=== PATIENT | female | born 1970 | race Caucasian/White ===

== ENCOUNTER 2017-06-07 17:29 | Emergency (ER) | payer OTHER, SELFPAY ==
[2017-06-07 17:30] VITALS: BP 137/95; PULSE 84; RESP 16; TEMP 37; O2SAT 100; BMI 23.3
--- NOTE | 2017-06-07 18:10 | CT_ITS ---
STUDY: CT BRAIN WITHOUT CONTRAST REASON FOR EXAM: Female, 47 years old. Headache. RADIATION DOSAGE (If Supplied By Facility): CTDIvol = ( 44.99 ) mGy, DLP = ( 745.49 ) mGycm TECHNIQUE: Transaxial CT imaging of the brain was performed without administration of intravenous contrast material. Individualized dose optimization techniques were used for this CT. COMPARISON: None. FINDINGS: Normal soft tissue structures. Normal calvarium. Normal size ventricles and extra-axial spaces for the patient's age. Normal white matter tracts of the cerebral hemispheres. Normal basal ganglia and thalami. Normal brainstem. Normal cerebellum. There is no intracranial hemorrhage. There are no findings of an acute ischemic infarction. There is minimal opacification of the right maxillary and ethmoid sinuses. CT/Brain/Head without Contrast IMPRESSION: No acute intracranial process. Minimal opacification of the right maxillary and ethmoid sinuses consistent with a history of sinusitis. Electronically Signed: Juju Rodrigez MD at 19:15 EDT Tel , Service support ,
[2017-06-07] MEDS: 0.9% Normal Saline 1,000 ML 999 ML IV (18:27)
[2017-06-07] MEDS: DiphenhydrAMINE 50 MG/ML Syringe IV (18:28)
[2017-06-07] MEDS: Ketorolac 30 MG/ML Syringe IV (18:28)
[2017-06-07] MEDS: proCHLORPERazine 10 MG/2 ML Vial IV (18:28)
[2017-06-07 19:49] VITALS: RESP 18
--- NOTE | 2017-06-07 20:12 | ED.VISSUMM ---
- ER Visit Summary Date of Service: 06/07/17 Chief Complaint: Headache History of Present Illness: The patient is a 47 F with no primary care physician. She reports she has a headache that began 2 hours ago. States is 10 out of 10 at worst and 510 currently. She describes as a throbbing pain in the occipital region. States is worsened by nothing and relieved by nothing. She has been nauseated and vomited 3-4 times. No blood in her emesis. Patient reports that she has had similar symptoms on and off for the past 3 months. She has never had imaging of her head. States that typically it lasts for approximately half a day and is having 3-4 times per month. On review of systems she reports that she is congested. She denies any numbness or weakness. States she has she had a fever to 100.5?. Physical Examination: Vitals: Stable. Afebrile. Neck: Supple with no meningismus. Neuro: Cranial nerves II through XII are intact, 5 out of 5 strength throughout, normal sensation to light touch throughout. Normal gait. General: A&O x 3. NAD. Cardiovascular exam: Regular rate and rhythm, no murmur, rub or gallop. Respiratory exam: Clear to auscultation bilaterally. No wheezes or stridor. Abdominal exam: Soft, nontender, nondistended, normal bowel sounds. No peritoneal signs. Extremity: No clubbing, cyanosis, or edema. Test Results: CT head shows minimal opacification of the right maxillary and ethmoid sinuses. Is otherwise normal. Emergency Department Course and Treatment: Patient had an IV placed. She was given a liter of normal saline. She is given Toradol, Benadryl, Compazine IV. On repeat exam she reports that her headache is completely resolved. Treatment Plan: A prolonged discussion with patient about potential etiologies for her headache. I do not think that taking antibiotics or decongestants is going to be helpful. I do suspect that this is tension in etiology. I have suggested that she use warm compresses, push fluids, take anti-inflammatories. Follow-up Dr. Rojas as needed. Disposition: To home in improved and stable condition. Impression: 1. Cephalgia. This note was generated with the[employer] dictation software. It may contain incorrect words, spelling, and punctuation that were not noted in review of the chart prior to signing ED Disposition - Plan for ED Patient: Disposition: Home or Assisted Living Chief Complaint: Headache Instructions: ED Cephalgia Unspecified Referrals: Margot Rojas DO [STAFF PHYSICIAN] - As Needed
[2017-06-07 20:19] VITALS: RESP 18
== END 2017-06-07 20:20 | disposition home or self-care (01) ==
LOC: ED 18:45
PROVIDERS: Emergency Provider Emergency Medicine
DX: R51 Headache (principal)
CPT/HCPCS: 70450; 96361; 96374; 96375; 99283; J7030; A4216

== ENCOUNTER → 2018-01-15 08:23 | Outpatient (CLI) | payer OTHER, SELFPAY ==
--- NOTE | 2018-01-15 08:25 | RAD_ITS ---
STUDY: X-RAY - LEFT TIBIA AND FIBULA REASON FOR EXAM: Female, 47 years old. Pain. No known injury. TECHNIQUE: 3 view(s) of the tibia and fibula were obtained. COMPARISON: None. FINDINGS: Normal visualized tibia. Normal visualized fibula. The soft tissue structures are unremarkable. RAD/Tibia & Fibula 2 Views IMPRESSION: Normal x-ray examination of the tibia and fibula. Electronically Signed: Scott Frank MD at 15:31 EDT Tel [phone], Service support ,
== END ==
PROVIDERS: Family Provider Family Medicine; PCP Family Medicine; Referring Provider Physician Assistant; Visit Provider Physician Assistant
DX: M79.662 Pain in left lower leg (principal)
CPT/HCPCS: 73590

== ENCOUNTER → 2018-01-21 16:59 | Outpatient (CLI) | payer OTHER, SELFPAY ==
--- NOTE | 2018-01-21 17:00 | MRI_ITS ---
STUDY: MRI LEFT KNEE REASON FOR EXAM: Lateral left knee pain since August, no specific injury. TECHNIQUE: Standardized fat and water weighted pulse sequences were obtained in all 3 orthogonal planes. COMPARISON: Radiographs 01/15/2018. FINDINGS: Normal medial meniscus. Normal hyaline cartilage of the medial femorotibial compartment. Normal medial femoral condyle and tibial plateau. Normal medial collateral ligamentous complex (MCL). Normal distal semimembranosus, gracilis and semitendinosus tendons. Normal lateral meniscus. Normal hyaline cartilage of the lateral femorotibial compartment. Normal lateral femoral condyle and tibial plateau. Normal proximal tibiofibular articulation. Normal lateral collateral (fibular) ligament. Normal popliteus tendon. Normal biceps femoris tendon. There is mild interstitial edema in the distal anterior cruciate ligament (T2 sagittal images 12, 13; T2 coronal images 15, 16) suggestive of a low-grade sprain. Normal posterior cruciate ligament (PCL). Normal congruent patellofemoral articulation. Normal hyaline cartilage of the patellofemoral compartment. Normal medial and lateral patellar retinaculum. Normal visualized quadriceps tendon. Normal patellar tendon. Normal Hoffa's fat pad. There is no joint effusion. There is a very small volume of fluid in the prepatellar bursa (T2 sagittal image 16; T2 axial image 15). The otherwise visualized osseous structures are unremarkable. MRI/Lower Ext Joint Only (Routine) IMPRESSION: Mild interstitial edema in the anterior cruciate ligament suggestive of a low-grade sprain. Very mild prepatellar bursitis. No demonstrated stress phenomenon. Electronically Signed: Mayo Ernst MD at 8:21 EDT Tel , Service support ,
== END ==
PROVIDERS: Family Provider Family Medicine; PCP Family Medicine; Referring Provider Physician Assistant; Visit Provider Physician Assistant
DX: F43.0 Acute stress reaction (principal); M25.562 Pain in left knee
CPT/HCPCS: 73721

== ENCOUNTER 2018-02-28 01:19 | Emergency (ER) | payer OTHER, SELFPAY ==
[2018-02-28 01:20] VITALS: BP 130/83; PULSE 78; RESP 18; TEMP 36.8; O2SAT 99; BMI 23.3
--- NOTE | 2018-02-28 01:46 | ED.DCSUM_ITS ---
- ER Visit Summary Date of Service: 02/28/18 Chief Complaint: Vertigo History of Present Illness: The patient is a 47 F who presents for vertigo. Symptoms onset was approximately 1 hour ago. Patient was in bed sleeping and woke up feeling nauseated. She went to get up and became very dizzy, describing symptoms as spinning and vertiginous. Patient has been vomiting. She has a very mild headache. She has had similar symptoms in the past with associated vertigo, for which she has taken Phenergan. She states the symptoms are similar, however a little more intense than her normal vertigo. She denies fever, visual changes, double vision, chest pain, shortness of breath. No numbness, weakness or tingling in the arms or legs. No difficulty speaking or swallowing. Symptoms are worse with standing or walking, and improved with patient sitting still. Physical Examination: Vital signs: afebrile, hemodynamically stable, no hypoxia on room air General: well nourished, well developed, actively retching, appears uncomfortable, sitting in bed with eyes closed Skin: warm, dry, no rash, no pallor HEENT: normocephalic and atraumatic; PERRL, EOMI, horizontal nystagmus, most prominent with leftward gaze, no forward gazing nystagmus or vertical nystagmus. Moist mucous membranes Cardiovascular: regular rate and rhythm without murmurs, no peripheral edema, 2+ pulses all distal extremities Respiratory: No increased work of breathing, lungs are clear to auscultation bilaterally, no rales, rhonchi or wheezing Abdominal: Abdomen is soft, nontender with normoactive bowel sounds, no guarding or rebound, no masses MSK: Moves all extremities, no deformities, normal strength Neuro: Awake and alert, oriented ?4. No facial droop, sensation and motor function intact and symmetric, finger to nose and [id number] are normal. No a aphasia. No dysarthria. No visual field deficits. Test Results: Abnormal Lab Results 02/28/18 02/28/18 01:50 01:50 WBC 6.7 RBC 4.83 Hgb 14.0 Hct 42.2 MCV 87.4 MCH 29.0 MCHC 33.2 RDW 12.6 RDW Differential 40.4 Plt Count 237 MPV 9.5 Immature Gran % (Auto) 0.000 Neut % (Auto) 60.8 Lymph % (Auto) 25.9 Kimball % (Auto) 9.7 Eos % (Auto) 3.3 Baso % (Auto) 0.3 Absolute Neuts (auto) 4.1 Absolute Lymphs (auto) 1.74 Total Counted Not Reportable Sodium 140 Potassium 3.7 Chloride 106 Carbon Dioxide 26.0 Anion Gap 8 BUN 16 Creatinine 1.06 H Estim Creat Clear Calc 62.74 Est GFR (MDRD) Af Amer 72 Est GFR (MDRD) Non-Af 59 L BUN/Creatinine Ratio 15.1 Glucose 108 H Calcium 8.1 L Total Bilirubin 0.60 AST 8 L ALT 13 Alkaline Phosphatase 60 Total Protein 6.8 Albumin 3.7 Globulin 3.1 Albumin/Globulin Ratio 1.2 Medications Given Discontinued Medications Sodium Chloride () 1,000 mls @ 1,000 mls/hr IV .Q1H ONE Stop: 02/28/18 02:37 Last Admin: 02/28/18 01:50 Dose: 1,000 mls/hr Lorazepam (Ativan) 1 mg IV X1 ONE Stop: 02/28/18 03:02 Last Admin: 02/28/18 03:13 Dose: 1 mg Meclizine HCl (Antivert) 25 mg PO X1 ONE Stop: 02/28/18 04:06 Last Admin: 02/28/18 04:27 Dose: 25 mg Promethazine HCl (Phenergan) 12.5 mg IV X1 ONE Stop: 02/28/18 01:39 Last Admin: 02/28/18 01:49 Dose: 12.5 mg Emergency Department Course and Treatment: Patient presents with sudden onset of vertigo while sleeping, which she has had in the past. We discussed whether she had ever been diagnosed as benign positional vertigo, and she and agreed that the positional vertigo and the inner ear issue was consistent with her prior diagnosis. Patient also states she does her own Trina maneuver at home once her symptoms calm down and has improvement. Patient was given IV fluids and Phenergan for symptoms. Patient's symptoms were exacerbated with Beatriz- Hallpike, and an Trina maneuver was attempted without any improvement in her symptoms. Patient had resolution of her nausea and vomiting with the Phenergan, but continued to have the vertigo. Patient was given Ativan for continued vertigo. Patient's symptoms are consistent with her prior episodes of BPPV, and her symptoms were provoked with changes in head position, consistent with BPPV. Patient was ambulated and had a narrow gait and was able to ambulate without any assistance. She was still symptomatic with ambulation but felt comfortable going home. She was given a prescription for meclizine and for Valium. She will follow-up with your doctor if not having improvement. Return precautions vipin avalos. Patient discharged home. Treatment Plan: [] Disposition: [] Impression: Benign positional vertigo This note was generated with [employer] dictation software. It may contain incorrect words, spelling, and punctuation that were not noted in review of the chart prior to signing ED Disposition - Plan for ED Patient: Disposition: Home or Assisted Living Chief Complaint: Dizziness Instructions: ED BPV Vertigo Prescriptions: Diazepam [Valium] 2 mg PO BID PRN PRN #10 tab PRN Reason: Vertigo RX: Meclizine HCl [Antivert] 25 mg PO 4X/DAY PRN PRN #30 tab PRN Reason: Vertigo Referrals: Bryant Villa MD [Primary Care Provider] - 3-5 Days if not improving Additional Instructions: May use the meclizine and Valium as needed for vertigo. Please follow-up with your doctor if you are not having improvement within 3-5 days. If you have any worsening of your condition or any new concerning symptoms, please return immediately to the emergency department for another evaluation.
[2018-02-28] MEDS: proMETHazine 25 MG/ML Syringe 12.5 MG IV (01:49)
[2018-02-28] MEDS: 0.9% Normal Saline 1,000 ML 1000 ML IV (01:50)
[2018-02-28 01:59] LABS: Absolute Lymphocyte Count 1.74 X10^3/ul (0.83-4.51); Absolute Neutrophil Count 4.1 X10^3/uL (2.0-7.7); Basophil# 0.02 X10^3/uL; Basophil% 0.3 % (0-1); Eosinophil# 0.22 X10^3/uL; Eosinophils% 3.3 % (0-5); Hematocrit 42.2 % (37-47); Lymphocyte # 1.74 X10^3/ul (4.0); Lymphocyte % 25.9 % (19-41); Mean Corp Hgb Conc 33.2 g/gl (32-36); Mean Corpuscular Volume 87.4 fL (81-99); Mean Platelet Vol. 9.5 fl (6.2-12.0); Monocyte# 0.65 X10^3/uL; Monocyte% 9.7 % (0-10); Neutrophil # 4.09 X10^3/uL (2.7-7.7); Neutrophil % 60.8 % (47-70); Platelet Count 237 K/mm3 (150-450); RBC Distribution Width CV 12.6 % (11.6-14.6); RBC Distribution Width SD 40.4 fl (35.1-43.9); Red Blood Count 4.83 M/mm3 (4.2-5.4); White Blood Count 6.7 K/mm3 (4.4-11.0)
[2018-02-28 02:01] LABS: POSITIVE COUNT NO; POSITIVE DIFFERENTIAL NO; POSITIVE MORPHOLOGY NO
[2018-02-28 02:14] LABS: ALB/GLOB Ratio 1.2 RATIO (0.9-2.4); AST(SGOT) 8 U/L (15-37); Alanine Aminotransfer ALT/SGPT 13 U/L (13-56); Albumin, Serum 3.7 g/dL (3.2-5.0); Alkaline Phosphatase 60 U/L (45-117); Anion Gap 8 (5-15); BUN 16 mg/dL (7-18); BUN/Creat Ratio 15.1 RATIO (10-20); Calcium,Total 8.1 mg/dL (8.5-10.1); Chloride 106 mmol/L (98-107); Creatinine, Serum 1.06 mg/dL (0.55-1.02); EST Glomerular Filtration Rate 59 mL/min (>60); Est Glom Filt Rate - Afr Amer 72 mL/min (>60); Estimated Creatinine Clearance 62.74 ml/min; Globulin 3.1 g/dL (2.2-4.2); Glucose 108 mg/dL (74-106); Potassium 3.7 mmol/L (3.5-5.1); Protein, Total 6.8 g/dL (6.4-8.2); Sodium Level 140 mmol/L (136-145)
[2018-02-28] MEDS: LORazepam 2 MG/ML Syringe 1 MG IV (03:13)
--- NOTE | 2018-02-28 04:08 | ED.DEP ---
ED Disposition - Plan for ED Patient: Disposition: Home or Assisted Living Chief Complaint: Dizziness Instructions: ED BPV Vertigo Prescriptions: Diazepam [Valium] 2 mg PO BID PRN PRN #10 tab PRN Reason: Vertigo Meclizine HCl [Antivert] 25 mg PO 4X/DAY PRN PRN #30 tab PRN Reason: Vertigo Referrals: Bryant Villa MD [Primary Care Provider] - 3-5 Days if not improving Additional Instructions: May use the meclizine and Valium as needed for vertigo. Please follow-up with your doctor if you are not having improvement within 3-5 days. If you have any worsening of your condition or any new concerning symptoms, please return immediately to the emergency department for another evaluation.
[2018-02-28] MEDS: Meclizine HCl 25 MG Tablet PO (04:27)
[2018-02-28 04:29] VITALS: BP 119/70; PULSE 69; RESP 16; O2SAT 100
== END 2018-02-28 04:37 | disposition home or self-care (01) ==
PROVIDERS: Emergency Provider Emergency Medicine; Family Provider Family Medicine; PCP Family Medicine
DX: H81.10 Benign paroxysmal vertigo, unspecified ear (principal)
CPT/HCPCS: 80053; 85025; 96361; 96374; 96375; 99284; J7030; A4216

== ENCOUNTER 2018-03-04 17:00 | Outpatient (RCR) | payer OTHER, SELFPAY ==
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
--- NOTE | 2018-06-25 16:46 | HP.PT.NRP ---
HP - Discharge Summary (1) - Patient Information DAVE CHANDRA was seen in my office for initial evaluation on 11/12/17. The following Plan of Care was established for this patient: Initial Frequency: 2-3x /Week Initial Duration: 2-4 Months - Anticipated Interventions Patient/Client Instruction: Educate patient on: Condition, Plan of Care, Risk Factors, Benefits of Fitness Program For the Purpose of:: To improve self management Therapeutic Exercise to Include: Strength training, Body mechanics, Postural training, Flexibilty training, Passive ROM, Active ROM, Dynamic Lumbar Stabilization For the Purpose of:: To decrease pain, To improve muscle performance and motor function, To increase tolerance to activity/condition/position, To improve ability of physical actions for home/community/work/leisure, To decrease soft tissue restriction Manual Therapy Techniques to Include: Functional dry needling Comment: LUMBAR AND LEFT HIP For the Purpose of:: To decrease pain, To increase ROM, To improve nutrient delivery to tissue This patient was last seen in our office . Pertinent comments regarding their Physical therapy will appear below: Patient has not attended PT in over 3 months and is appropriate for d/c at this time. Return to MD for further evaluation. At this point I will be discontinuing this patient from physical therapy. I would be happy to see this patient again in the future if found appropriate by the physician. Thank you! GERRI McallisterT
== END 2018-03-04 19:00 | disposition home or self-care (01) ==
LOC: PT 17:00
PROVIDERS: Family Provider Family Medicine; PCP Family Medicine; Visit Provider Orthopaedic Surgery
DX: M79.605 Pain in left leg (principal)
CPT/HCPCS: 97016; 97035; 97110; 97140; 97162; 97530

== ENCOUNTER → 2018-06-24 16:50 | Outpatient (CLI) | payer OTHER, SELFPAY ==
--- NOTE | 2018-06-24 16:53 | MRI_ITS ---
STUDY: MRI BRAIN WITHOUT CONTRAST REASON FOR EXAM: Female, 48 years old. Headache, blurred vision, vertigo for a few months TECHNIQUE: Standardized multiplanar fat and water weighted pulse sequences were obtained. COMPARISON: None. FINDINGS: Normal size of the ventricles and extra-axial spaces for the patient's age. Normal white matter tracts of the supratentorial brain. Normal bilateral basal ganglia. Normal thalami. There is no extra-axial fluid accumulation. Normal flow voids within the major intracranial circulation suggesting patency by spin echo criteria. Normal sella turcica, pituitary gland, infundibular stalk, optic chiasm and hypothalamus. Normal tectal plate and pineal gland. Normal midbrain, lexie and medulla. Normal cerebellum. Normal basal cisterns. Normal bilateral temporal bones. Normal bilateral internal auditory canals. No demonstrated orbital abnormality, within the constraints of a routine brain study. Normal visualized paranasal sinuses. Normal calvarium and skull base. Normal visualized soft tissue structures. Normal visualized upper cervical spine. MRI/Brain without Contrast IMPRESSION: Normal unenhanced MRI of the brain. Electronically Signed: Aguila Cabrera MD at 22:45 EDT Tel , Service support ,
== END ==
PROVIDERS: Family Provider Internal Medicine; PCP Internal Medicine; Referring Provider Internal Medicine; Visit Provider Internal Medicine
DX: R42 Dizziness and giddiness (principal)
CPT/HCPCS: 70551

== ENCOUNTER 2019-01-13 01:18 | Emergency (ER) | payer OTHER, SELFPAY ==
[2019-01-13 01:19] VITALS: BP 139/95; PULSE 67; RESP 18; TEMP 35.6; O2SAT 96; BMI 24.5
[2019-01-13] MEDS: proMETHazine 25 MG/ML Syringe 12.5 MG IV (01:32)
--- NOTE | 2019-01-13 01:34 | ED.VISSUMM ---
- ER Visit Summary Date of Service: 01/13/19 Chief Complaint: Vertigo History of Present Illness: The patient is a 48 F who started experiencing some vertigo today. She was doing yoga and got into a certain position which made this worse. It improved when she got home and laid down it became worse. She tried taking her own Valium and meclizine at home but she vomited this back up. She is a history of vertigo and does have these medications to take as needed. The room is spinning. She states it feels exactly like her previous episodes. She has a slight headache but denies any other symptoms. Physical Examination: Vital signs reviewed. HEENT exam unremarkable except for nystagmus to the left which makes her symptoms worse. Heart is regular rate and rhythm without murmurs. Lungs are clear to auscultation. Abdomen is soft and nontender. Extremities reveal no edema. Skin exam normal. Neurologic exam normal. Test Results: None performed Emergency Department Course and Treatment: Patient was treated with IV Phenergan and oral meclizine. Upon reevaluation she is feeling much better. She already has meclizine and Valium at home. I will give her Phenergan that she can take to prevent nausea that way she can keep her medications down. Her symptoms are classic for peripheral vertigo. She has a history of this and it feels exactly the same. I do not feel she requires any imaging or laboratory studies at this time. Treatment Plan: [] Disposition: Discharge Impression: Vertigo This note was generated with [employer] dictation software. It may contain incorrect words, spelling, and punctuation that were not noted in review of the chart prior to signing ED Disposition - Plan for ED Patient: Referrals: Margot Rojas DO [Primary Care Provider] -
[2019-01-13] MEDS: Meclizine HCl 25 MG Tablet PO (01:39)
--- NOTE | 2019-01-13 02:11 | ED.DEP ---
ED Disposition - Plan for ED Patient: Disposition: Home or Assisted Living Instructions: Benign Positional Vertigo Prescriptions: proMETHazine tablet [Phenergan] 25 mg PO Q6H PRN PRN #20 tab PRN Reason: Nausea Prescription Printed Referrals: Margot Rojas DO [Primary Care Provider] -
[2019-01-13 02:33] VITALS: BP 99/68; PULSE 64; RESP 17; O2SAT 98
== END 2019-01-13 02:33 | disposition home or self-care (01) ==
PROVIDERS: Emergency Provider Emergency Medicine; Family Provider Internal Medicine; PCP Internal Medicine
DX: R42 Dizziness and giddiness (principal)
CPT/HCPCS: 96374; 99283; A4216

== ENCOUNTER → 2019-03-11 07:59 | Outpatient (CLI) | payer OTHER, SELFPAY ==
--- NOTE | 2019-03-11 08:03 | BI_ITS ---
MAMMOGRAPHY - BILATERAL SCREENING REASON FOR EXAM: Female, 48 years old. Routine annual screening examination. PERTINENT HISTORY: Aunt with breast cancer. TECHNIQUE: Digital bilateral breast jose elias (3D mammographic acquisition) in the CC and MLO projections. 2-D mediolateral oblique (MLO) and craniocaudad (CC) views of both breasts were obtained. CAD: Full Field Digital Mammography with Computer Added Detection was performed. COMPARISON: Comparison is made with prior study dated May 04, 2013. FINDINGS: Breast Composition: The breasts are heterogeneously dense, which may obscure small masses. There are no dominant masses or suspicious calcifications. No other significant abnormalities are identified. There has been no significant change since the prior study. BI/SCREEN MAMM (CAD) W/JOSE ELIAS BILAT IMPRESSION: Stable bilateral screening mammogram. Yearly follow-up mammogram recommended. (A) ASSESSMENT CATEGORY: BIRADS Category 1: Negative. A letter regarding these results will be sent to the patient by the facility within 30 days. Approximately 10% of breast cancers are not detected by mammography. A normal mammogram should not delay biopsy of a clinically suspicious abnormality. [id number] Electronically Signed: Scott Frank, at 9:25 EST , Service support ,
== END ==
PROVIDERS: Family Provider Internal Medicine; PCP Internal Medicine; Referring Provider Obstetrics & Gynecology; Visit Provider Obstetrics & Gynecology
DX: Z12.31 Encounter for screening mammogram for malignant neoplasm of breast (principal)
CPT/HCPCS: 77063; 77067

== ENCOUNTER → 2020-03-30 16:02 | Outpatient (CLI) | payer OTHER, SELFPAY ==
--- NOTE | 2020-03-30 16:05 | BI_ITS ---
MAMMOGRAPHY - BILATERAL SCREENING REASON FOR EXAM: Female, 49 years old. Routine annual screening examination. PERTINENT HISTORY: Aunt with breast cancer. TECHNIQUE: Digital bilateral breast jose elias (3D mammographic acquisition) in the CC and MLO projections. 2-D mediolateral oblique (MLO) and craniocaudad (CC) views of both breasts were obtained. CAD: Full Field Digital Mammography with Computer Added Detection was performed. COMPARISON: Comparison is made with prior study dated 03/11/2019 and 05/04/2013 FINDINGS: Breast Composition: The breasts are extremely dense, which lowers the sensitivity of mammography. There are no dominant masses or suspicious calcifications. No other significant abnormalities are identified. There has been no significant change since the prior study. BI/SCREEN MAMM (CAD) W/JOSE ELIAS BILAT IMPRESSION: Stable bilateral screening mammogram. Yearly follow-up mammogram recommended. (A) ASSESSMENT CATEGORY: BIRADS Category 1: Negative. A letter regarding these results will be sent to the patient by the facility within 30 days. Approximately 10% of breast cancers are not detected by mammography. A normal mammogram should not delay biopsy of a clinically suspicious abnormality. [id number] Electronically Signed: Scott Frank, at 8:43 EST , Service support ,
== END ==
PROVIDERS: PCP Internal Medicine; Referring Provider Obstetrics & Gynecology; Visit Provider Obstetrics & Gynecology
DX: Z12.31 Encounter for screening mammogram for malignant neoplasm of breast (principal)
CPT/HCPCS: 77063; 77067

== ENCOUNTER 2020-07-12 17:25 | Emergency (ER) | payer OTHER, SELFPAY ==
[2020-07-12 17:25] VITALS: BP 152/78; PULSE 66; RESP 14; TEMP 36.4; O2SAT 100; BMI 23.8
--- NOTE | 2020-07-12 19:00 | CT_ITS ---
EXAMINATION : Head CT w/out contrast HISTORY : Headache COMPARISON : 06/07/2017. TECHNIQUE : Multiple contiguous axial images were obtained from the skull base to the vertex without intravenous contrast. A radiation dose optimization technique was used for this scan. FINDINGS : The ventricles and sulci are normal in size. There is no evidence for acute intracranial hemorrhage, mass effect, or midline shift. There is no extra-axial fluid collection. There is normal ortez-white differentiation, without CT evidence of acute ischemia or infarct. The skull base and calvarium are unremarkable. The orbits are unremarkable. The paranasal sinuses are clear. The mastoid air cells are well-aerated. The soft tissues are unremarkable. CT/Brain/Head without Contrast IMPRESSION: No acute intracranial abnormality. Electronically Signed: Slade Ernst MD at 19:34 EDT Tel , Service support ,
[2020-07-12] MEDS: diazePAM 5 MG Tablet 2.5 MG PO (19:20)
[2020-07-12] MEDS: Meclizine HCl 25 MG Tablet PO (19:20)
--- NOTE | 2020-07-12 20:28 | ED.VIS.GEN ---
History of Present Illness Chief Complaint: Dizziness Narrative: Patient presenting for evaluation secondary to vertigo. Patient does have a history of having issues with vertigo in the past. Patient states that typically her symptoms will be very paroxysmal and not last for multiple days at a time. Patient states that she basically has been having an exacerbation of her vertigo over the course of the last 5 days. She states that it is positional is worse with laying flat and rolling over in bed. It is a spinning type sensation. It comes and goes. This time however its been associated with somewhat of a headache, and that is somewhat abnormal. She denies that this is a thunderclap headache. It is a general aching type pain. Patient denies any visual changes numbness or weakness. She still able to ambulate. Patient has seen ENT in the past, she had sinus surgery a couple years ago and actually had had a significant improvement in her frequency of vertigo symptoms. Review of systems otherwise negative. Past Medical History - Allergies and Home Meds Allergies/Adverse Reactions: Allergies morphine Allergy (Verified 07/12/20 17:27) Swelling SWELLING IN THROAT Primary Care Physician: Margot Rojas DO [Primary Care Provider] - Prior records reviewed: Yes Past Medical History: - - Past history of vertigo Lives: Spouse/ Significant Other Smoking Status: Never smoker Alcohol: None Drugs: None Review of Systems All systems negative except as indicated General: Denies: Chills, Fever, Sweats Eyes: Denies: Visual changes - bilaterally, Diplopia ENT: Denies: Rhinorrhea, Sore throat Cardiovascular: Denies: Chest pain, Palpitations Respiratory: Denies: Dyspnea, Cough, Dyspnea on exertion Gastrointestinal: Denies: Abdominal pain, Nausea, Vomiting, Diarrhea, Melena, Hematochezia Genitourinary: Denies: Dysuria, Hematuria, Frequency Musculoskeletal: Denies: Back pain, Extremity Pain Skin: Denies: Rash, Wounds Neurological: Reports: Headache, - - Dizziness Physical Exam Vital Signs/Narrative: Vital Signs Temp Pulse Resp BP Pulse Ox 07/12/20 17:25 97.5 F L 66 14 152/78 H 100 Inital Vital Signs reviewed: Yes General: Well nourished, Well developed, No Acute Distress Head: Normocephalic, Atraumatic Eyes: Perrl, EOMI ENT: Moist mucous membranes, No rhinorrhea, TM's clear Neck: Supple, Nontender Cardiovascular: Regular rate, Regular rhythm, No murmurs Respiratory: No distress, CTA bilaterally, Chest nontender Abdomen: Soft, Nontender, Nondistended, Normal bowel sounds Back: Nontender, Normal Inspection Extremities: Nontender, No edema Skin: Normal color, No rash Neurological: Alert, Oriented x3, Cranial nerves II-XII grossly intact, Normal Strength, Normal Sensation, - - Normal gait, no evidence of ataxia, normal [id number] Psychological: Normal affect, Normal Mood Diagnostic/Tx/Re-eval Clinical Impression(s) from Imaging Studies Brain CT 07/12/20 19:00 IMPRESSION: No acute intracranial abnormality. Electronically Signed: Slade Ernst MD at 19:34 EDT Tel , Service support , - Medical Decision Making Patient presented secondary to an exacerbation of her vertigo. She was given meclizine and Valium in the emergency department. CT imaging was performed due to the concomitant headache, per radiology this was found to be negative. Patient has no signs of ataxia, I am not concerned for the possibility of thrombosis or posterior circulation stroke. She was able to ambulate multiple times in the emergency department. She did have symptomatic improvement for medication in the ED. As this seems to be consistent with the patient's prior vertigo, do not believe that she requires admission or further work-up. She will follow-up with her ear nose and throat physician. Patient was discharged in improved condition. ED Disposition - Plan for ED Patient: Disposition: Home or Assisted Living Diagnosis: Peripheral vertigo Instructions: ED BPV Vertigo Referrals: Bryant Farris MD [STAFF PHYSICIAN] - 3-5 Days if not improving
[2020-07-12 20:44] VITALS: PULSE 54; RESP 16
== END 2020-07-12 20:44 | disposition home or self-care (01) ==
PROVIDERS: Emergency Provider Emergency Medicine; PCP Internal Medicine
DX: H81.399 Other peripheral vertigo, unspecified ear (principal)
CPT/HCPCS: 70450; 99283

== ENCOUNTER → 2021-03-06 06:35 | Outpatient (CLI) | payer OTHER, SELFPAY ==
[2021-03-06 08:08] LABS: Hematocrit 45.4 % (37-47); Hemoglobin 15.2 g/dL (12.0-15.0); Mean Corp Hgb Conc 33.5 g/dL (32-36); Mean Corpuscular Hgb 29.7 pg (27.0-32.0); Mean Corpuscular Volume 88.8 fL (81-99); Mean Platelet Vol. 9.7 fl (6.2-12.0); Platelet Count 306 K/mm3 (150-450); RBC Distribution Width CV 12.1 % (11.6-14.6); RBC Distribution Width SD 39.5 fl (35.1-43.9); Red Blood Count 5.11 M/mm3 (4.2-5.4); White Blood Count 4.9 K/mm3 (4.4-11.0)
[2021-03-06 08:43] LABS: ALB/GLOB Ratio 1.1 RATIO (0.9-2.4); AST(SGOT) 12 U/L (15-37); Alanine Aminotransfer ALT/SGPT 18 U/L (13-56); Albumin, Serum 3.8 g/dL (3.2-5.0); Alkaline Phosphatase 75 U/L (45-117); Anion Gap 4 (5-15); BUN 13 mg/dL (7-18); BUN/Creat Ratio 12.9 RATIO (10-20); Calcium,Total 9.1 mg/dL (8.5-10.1); Chloride 108 mmol/L (98-107); Creatinine, Serum 1.01 mg/dL (0.55-1.02); EST Glomerular Filtration Rate 62 mL/min (>60); Est Glom Filt Rate - Afr Amer 75 mL/min (>60); Globulin 3.4 g/dL (2.2-4.2); Glucose 86 mg/dL (74-106); Protein, Total 7.2 g/dL (6.4-8.2); Sodium Level 141 mmol/L (136-145); Thyroid Stim Hormone (TSH) 1.47 uIU/mL (0.358-3.74)
== END ==
PROVIDERS: PCP Internal Medicine; Referring Provider Psychiatry & Neurology Neurology; Visit Provider Psychiatry & Neurology Neurology
DX: R42 Dizziness and giddiness (principal); R53.83 Other fatigue
CPT/HCPCS: 36415; 80053; 84443; 85027

== ENCOUNTER 2021-03-12 06:48 | Outpatient (RCR) | payer OTHER, SELFPAY ==
--- NOTE | 2021-03-12 07:38 | HP.PTEVAL_ITS ---
Patient's Visit Information DAVE CHANDRA is a 50 year old F referred to Physical Therapy by Dr. Leighton Way MD with a diagnosis of dizzyness. Date of Evaluation: 03/12/21 Physical Therapist: Elmo Espino, GERRIT, OCS, CSCS - Visit Plan Frequency: 1x/Week Duration: 4-6 Weeks Plan: weekly as needed for positional treatments/exercises adn vestibular interventions as appropriate. - Subjective Get intermittent vertigo 1-2x/year for a long time. Had sinus procedure done and stopped getting them. However , over the last year has had vertigo each morning waking up or moving head at night. Gets HIGGINS with it and that has not happened before. Sent here for vestibular therapist by neurologist. The dizzyness is not horrible but annoying. Getsit most mornings for the last couple months but it does not last long or keep her from working. Gets it in bed moving. Lying straight back is the worst as when she gets a massage. It can be spinning or just a weird feeling in the head. 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 This is new in last year and a half and may be casuing the HIGGINS. Can get dizzyness if moves head too fast. Activities at home are pretty normal, can just be annoying. - Objective Walks and trasnfers normal and easy today, some discomfort in eyes lying down but functional. Steps reciprocal without rail easy. - L hallpike magdy. Possible + R hallpike magdy with squinting and some minor dizzyness for 5-10 seconds(no obvious nystagmus) , treated with Trina 2x/today. - roll test. Oculomotor: no nystagmus with gaze or head shake. - head thrust. - ocular tilt. - skew eye deviation. purusit and saccades are normal. VOr is normal and without symptoms horiz and vertical. - Balance/Special Test Scores Functional Gait Assessment Score: 30 % Disability: 0 Dizziness Score: 26 - Goals Goal 1:: abolish all dizzyness. Goal Time Frame: 4-6 Weeks Goal 2:: 0 DHI score Goal Time Frame: 4-6 Weeks - Rehabilitation Potential Physical Therapy Diagnosis: possible BPPV and resulting annoyance with activites. Rehabilitation Potential: Fair - Anticipated Interventions Patient/Client Instruction: Educate patient on: Condition, Plan of Care For the Purpose of:: To increase tolerance to activity/condition/position Comment: vestibular interventions as appropriate For the Purpose of:: To increase tolerance to activity/condition/position Thank you for the opportunity to evaluate your patient. For Medicare and Medicare HMO plans, please review the plan of care and approve it. It will need to be FAXED BACK to us at [phone] for Medicare purposes. For Medicare only, by signing this I certify the plan of care. Please let me know if there are questions or concerns regarding this plan of care. Physician Signature: Date:
--- NOTE | 2021-05-07 08:39 | HP.PT.NRP ---
DAVE CHANDRA was seen in my office for initial evaluation on 03/12/21. The following Plan of Care was established for this patient: Initial Frequency: 1x/Week Initial Duration: 4-6 Weeks Patient/Client Instruction: Educate patient on: Condition, Plan of Care For the Purpose of:: To increase tolerance to activity/condition/position For the Purpose of:: To increase tolerance to activity/condition/position This patient was last seen in our office 03/12/21. Pertinent comments regarding their Physical therapy will appear below: Pt seen one visit of POC but cancelled remaining visits without rescheduling. At this point, it has been almost two months and I will discontinue due to nonattendance. At this point I will be discontinuing this patient from physical therapy. I would be happy to see this patient again in the future if found appropriate by the physician. Thank you! Elmo Espino, DPT, OCS, CSCS Balance/Gait/Functional tests - Balance/Special Test Scores Functional Gait Assessment Score: 30 % Disability: 0 Dizziness Score: 26
== END 2021-03-12 19:00 | disposition home or self-care (01) ==
LOC: PT 06:48
PROVIDERS: PCP Internal Medicine; Referring Provider Psychiatry & Neurology Neurology; Visit Provider Psychiatry & Neurology Neurology
DX: R42 Dizziness and giddiness (principal)
CPT/HCPCS: 97161

== ENCOUNTER 2023-08-05 18:01 | Emergency (ER) | payer OTHER, SELFPAY ==
[2023-08-05 18:02] VITALS: BP 158/91; PULSE 86; RESP 18; TEMP 36.1; O2SAT 100; BMI 24.5
[2023-08-05 19:09] LABS: Absolute Lymphocyte Count 0.94 X10^3/uL (0.83-4.51); Absolute Neutrophil Count 8.6 X10^3/uL (2.0-7.7); Basophil# 0.04 X10^3/uL; Basophil% 0.4 % (0-1); Eosinophil# 0.15 X10^3/uL; Eosinophils% 1.5 % (0-5); Hematocrit 45.7 % (37-47); Hemoglobin 14.7 g/dL (12.0-15.0); Lymphocyte # 0.94 X10^3/ul (0.83-4.51); Lymphocyte % 9.2 % (19-41); Mean Corp Hgb Conc 32.2 g/dL (32-36); Mean Corpuscular Hgb 28.6 pg (27.0-32.0); Mean Corpuscular Volume 88.9 fL (81-99); Mean Platelet Vol. 9.6 fl (6.2-12.0); Monocyte# 0.49 X10^3/uL; Monocyte% 4.8 % (0-10); NRBC Flagged by Analyzer 0 % (0-5); Neutrophil # 8.56 X10^3/uL (2.7-7.7); Neutrophil % 83.8 % (47-70); Platelet Count 301 K/mm3 (150-450); RBC Distribution Width CV 12.5 % (11.6-14.6); RBC Distribution Width SD 41.1 fl (35.1-43.9); Red Blood Count 5.14 M/mm3 (4.2-5.4); White Blood Count 10.2 K/mm3 (4.4-11.0)
--- NOTE | 2023-08-05 19:12 | EDS_ITS ---
HPI HPI - GI History of Present Illness Chief Complaint: Abd Pain Detail of Chief Complaint: Abdominal pain Narrative Narrative: Patient presents with abdominal pain is around 3 PM. Patient states that initially she woke up this morning with some pain in her right back that she thought she slept wrong. The pain in her abdomen started around 3 PM. Mostly right-sided. She complains of vomiting x 7. She denies diarrhea. She has had no fever. No urinary symptoms. She is never had pain like this before. She had prior hysterectomy. No history of kidney stones. Currently rates her pain 9 or 10 out of 10. [facility] Medical History (Updated 08/06/23 @ 00:[address] Oni Carlson, DO) Asthma Seasonal allergies Vertigo Home Medications ?Medication ?Instructions ?Recorded ?Last Taken ?Type meclizine 25 mg tablet 25 mg PO 4X/DAY PRN PRN Vertigo 02/28/18 Unknown Rx #30 tabs hydroxyzine pamoate 25 mg capsule 25 mg PO TID PRN Dizziness or 03/05/21 Unknown Rx nausea #90 caps ascorbic acid (vitamin C) 1,000 mg 1,000 mg PO DAILY 08/05/23 Unknown History tablet,extended release (C Complex) melatonin 10 mg chewable tablet 20 mg PO QHS sleep 08/05/23 Unknown History (MelatoninMax) ondansetron 4 mg disintegrating 4 mg PO Q6H PRN PRN nausea/vomiting 08/05/23 Unknown History tablet Allergy/AdvReac Type Severity Reaction Status Date / Time morphine Allergy Swelling Verified 08/05/23 18:04 Family History (Updated 03/05/21 @ 08:04 by Aicha Lloyd) Other CVA (cerebral vascular accident) Cancer Surgical History History of sinus surgery History of hysterectomy Social History (Updated 03/05/21 @ 08:04 by Aicha Lloyd) Smoking Status: Never smoker Electronic Cigarette Use: not used second hand exposure: No alcohol intake: never substance use type: does not use ROS ROS ED Review of Systems ROS Unobtainable: other Constitutional Constitutional ED: Reports lethargy; Denies chills, fever(s), sweats or weight loss Eyes Eyes: Denies blurry vision, change in vision or diplopia ENT ENT ED: Denies rhinorrhea or sore throat Cardiovascular Cardiovascular: Denies chest pain, orthopnea or racing heartbeat Respiratory/Chest Respiratory/Chest: Denies cough, dyspnea, dyspnea on exertion, orthopnea or sputum Gastrointestinal Gastrointestinal: Reports abdominal pain, nausea and vomiting; Denies diarrhea Genitourinary Genitourinary ED: Denies dysuria, hematuria or urinary frequency Musculoskeletal Musculoskeletal: Denies arthralgias, back pain, myalgias or neck pain Integumentary Denies abscess, Abrasions or rash Neurologic Neurologic: Denies headache(s) or weakness Psychiatric Psychiatric: Denies anxiety, depression or suicidal thoughts Endocrine Endocrinology: Denies polydipsia, polyphagia or polyuria Hematologic/Lymphatic Hematologic/Lymphatic: Denies easy bleeding, easy bruising or lymphadenopathy Allergic/Immunologic Allergic/Immunologic ED: Denies mouth swelling, tongue swelling or urticaria EXAM Physical Exam Const Vital Signs: 08/05/23 18:02 08/05/23 20:01 08/05/23 22:00 Temperature 97 F L 98.1 F Temperature Source Temporal Oral Pulse Rate 86 85 82 Respiratory Rate 18 16 16 Blood Pressure 158/91 H 121/62 H 136/80 H Blood Pressure Mean 113 81 98 Pulse Ox 100 99 98 Oxygen Delivery Method Room Air Room Air Room Air 08/06/23 00:00 Temperature Temperature Source Pulse Rate 66 Respiratory Rate 16 Blood Pressure 130/57 H Blood Pressure Mean 81 Pulse Ox 99 Oxygen Delivery Method Room Air Positive well nourished and well developed General Appearance ED: well developed and NAD HEENT Reports TM's clear and moist mucous membranes normocephalic and atraumatic; Negative for trauma or tenderness Tympanic Membrane ED: Yes TM's clear Eyes PERRL and EOMs intact bilaterally General Eye ED: Negative for pale conjunctiva or scleral icterus Neck no lymphadenopathy, supple and no JVD General: Negative for tenderness Chest Wall inspection of chest normal and palpation of chest normal Chest: Negative for tenderness Resp normal respiratory effort and clear to auscultation bilaterally Effort and Inspection: Negative for respiratory distress or pain with movement Auscultation: Negative for rhonchi, wheezes or diminished lung sounds Cardio regular rate, regular rhythm, S1 normal heart sound, S2 normal heart sound and no murmurs Peripheral Pulses: pulses 2+ throughout GI normal to inspection, nondistended, normoactive bowel sounds, soft to palpation, non-distended and no masses GI Narrative: Tenderness palpation of the right lower quadrant with guarding. No rebound, rigidity, or pineal signs. No mass palpated Back/Spine no CVA tenderness and no thoracic nor lumbar tenderness Extremity normal to inspection General Extremety ED: Negative for edema General Extremity: Negative for edema Neuro oriented x3, CN's II-XII intact bilaterally, no sensory deficits noted and gait normal Sensorium / Orientation: awake, alert, oriented to person, oriented to place and oriented to time Motor Exam: strength 5/5 throughout and strength abnormal Psych mental status grossly normal Skin no rashes or lesions noted and no wounds MDM MDM MDM Narrative Medical decision making narrative: Patient presents with abdominal pain right lower quadrant started around 3 PM not multiple episodes of vomiting. Denies dysuria. In the differential would be kidney stone versus UTI versus appendicitis or other acute intra-abdominal process. Patient's had a hysterectomy with 1 ovary removed and possibly part of the second ovary but she is not sure which side. Ovarian torsion would be in the differential. IV line established. She was medicated with Dilaudid and Zofran. CBC with differential obtained showing a 10.2 with hemoglobin 14.7 and platelet count of 301. Chemistries unremarkable. LFTs unremarkable. Urine was negative for infection. CT scan of the abdomen pelvis without contrast showed no evidence for kidney stones or other acute process. There was nonvisualization of the appendix. I repeated the CT with IV and p.o. contrast and radiology felt the appendix looked normal. Patient continues to complain of pain and was given another dose of Dilaudid IV. Had discussion with general surgeon on-call Dr. Solomon who evaluated the CT scans and believes that he too can see the appendix and it appears normal. He does see a structure in the right side next to the rectum that appears abnormal and is unsure if this represents remnant ovary or cyst and recommended obtaining a pelvic ultrasound to evaluate further. Will order a transvaginal pelvic ultrasound to rule out torsion as she continues to have pain. Etiology of her pain at this point is unclear. Care of patient turned over to night doc awaiting pelvic ultrasound and reevaluation final disposition Lab Data Attestation: I reviewed the patient's lab results. Labs: Laboratory Results - last 24 hr 08/05/23 08/05/23 18:50 19:42 WBC 10.2 RBC 5.14 Hgb 14.7 Hct 45.7 MCV 88.9 MCH 28.6 MCHC 32.2 RDW Std Deviation 41.1 RDW Coeff of Nayely 12.5 Plt Count 301 MPV 9.6 Immature Gran % (Auto) 0.300 Neut % (Auto) 83.8 H Lymph % (Auto) 9.2 L [place] % (Auto) 4.8 Eos % (Auto) 1.5 Baso % (Auto) 0.4 Absolute Neuts (auto) 8.6 H Absolute Lymphs (auto) 0.94 Nucleated RBC % 0 Sodium 138 Potassium 4.0 Chloride 104 Carbon Dioxide 29.0 Anion Gap 5 BUN 13 Creatinine 1.03 H Estim Creat Clear Calc 60.49 Est GFR (MDRD) Af Amer 73 Est GFR (MDRD) Non-Af 60 BUN/Creatinine Ratio 12.6 Glucose 114 H Calcium 9.5 Total Bilirubin 0.90 AST 16 ALT 21 Alkaline Phosphatase 82 Total Protein 7.3 Albumin 3.9 Globulin 3.4 Albumin/Globulin Ratio 1.1 Serum , Qual NEGATIVE Urine Color Yellow Urine Clarity Clear Urine pH 7.0 Ur Specific [place] 1.020 Urine Protein Negative Urine Glucose (UA) Normal Urine Ketones Negative Urine Occult Blood Negative Urine Nitrite Negative Urine Bilirubin Negative Urine Urobilinogen Normal Ur Leukocyte Esterase Negative Urine RBC 0 SEEN Urine WBC 0 SEEN Ur Squamous Epith Cells 5-10 SEEN Urine Bacteria RARE Urine Mucus 0 SEEN Radiography Diagnostic Testing: Clinical Impression(s) from Imaging Studies Abdomen/Pelvis CT 08/05/23 19:12 IMPRESSION: Bilateral renal stones. No hydronephrosis. Electronically Signed: Siva Franco MD at 20:26 EDT , Abdomen/Pelvis CT 08/05/23 20:47 IMPRESSION: No obstruction. Small renal stones. No hydronephrosis. Electronically Signed: Siva Franco MD at 23:11 EDT , Discharge Plan Triage Chief Complaint: Abd Pain ED Provider: Oni Carlson Dx/Rx/DC Orders Clinical Impression: Abdominal pain Prescriptions: No Action hydroxyzine pamoate 25 mg capsule 25 mg PO TID PRN (Reason: Dizziness or nausea) Qty: 90 2RF meclizine 25 MG tablet 25 mg PO 4X/DAY PRN PRN (Reason: Vertigo) Qty: 30 0RF ondansetron 4 mg tablet,disintegrating 4 mg PO Q6H PRN PRN (Reason: nausea/vomiting) C Complex 1,000 mg tablet extended release 1,000 mg PO DAILY MelatoninMax 10 mg tablet,chewable 20 mg PO QHS Primary Care Provider: Margot Rojas Referrals: Margot Rojas DO [Primary Care Provider] - Print Language: Telugu
--- NOTE | 2023-08-05 19:12 | CT_ITS ---
STUDY: CT ABDOMEN AND PELVIS WITHOUT CONTRAST REASON FOR EXAM: Female, 53 years old. Pain RADIATION DOSAGE (If Supplied By Facility): CTDIvol = ( 6.30 ) mGy, DLP = ( 327.51 ) mGycm TECHNIQUE: Transaxial images were obtained from the dome of the diaphragm to the symphysis pubis without oral contrast, and without intravenous contrast. Sagittal and coronal images were reconstructed. Individualized dose optimization techniques were used for this CT. COMPARISON: None. FINDINGS: The visualized lung bases are unremarkable. The visualized portions of the heart are within normal limits. Normal liver. Normal gallbladder and extrahepatic biliary system. Normal spleen. Normal pancreas. Normal bilateral adrenal glands. There is 0.2 cm stone of the right kidney. There is 0.2 cm stone of the left kidney. Normal visualized stomach. Normal small intestine. Normal colon. There is non-visualization of the appendix. There is mild atherosclerotic calcification of the abdominal aorta, without a demonstrated aneurysm. Normal inferior vena cava. Normal retroperitoneum. Normal urinary bladder. There is no free fluid in the abdomen or pelvis. There is Normal abdominal wall. There is degenerative change of the spine with L5-S1 foraminal narrowing. CT/Abdomen/Pelvis without Cont IMPRESSION: Bilateral renal stones. No hydronephrosis. Electronically Signed: Siva Franco MD at 20:26 EDT ,
[2023-08-05 19:19] LABS: Internal QC Validated? YES +Cl - CLEAR BKGD; Pregnancy, Serum, hCG Quali. NEGATIVE Negative
[2023-08-05 19:28] LABS: ALB/GLOB Ratio 1.1 RATIO (0.9-2.4); AST(SGOT) 16 U/L (15-37); Alanine Aminotransfer ALT/SGPT 21 U/L (13-56); Albumin, Serum 3.9 g/dL (3.2-5.0); Alkaline Phosphatase 82 U/L (45-117); Anion Gap 5 (5-15); BUN 13 mg/dL (7-18); BUN/Creat Ratio 12.6 RATIO (10-20); Calcium,Total 9.5 mg/dL (8.5-10.1); Chloride 104 mmol/L (98-107); Creatinine, Serum 1.03 mg/dL (0.55-1.02); EST Glomerular Filtration Rate 60 mL/min (>60); Est Glom Filt Rate - Afr Amer 73 mL/min (>60); Estimated Creatinine Clearance 60.49 ml/min; Globulin 3.4 g/dL (2.2-4.2); Glucose 114 mg/dL (74-106); Protein, Total 7.3 g/dL (6.4-8.2); Sodium Level 138 mmol/L (136-145)
[2023-08-05] MEDS: Ketorolac 15 MG/ML Vial IV (19:31)
[2023-08-05] MEDS: HYDROmorphone 1 MG/ML Syringe IV ×2 (19:31→21:17)
[2023-08-05] MEDS: Ondansetron 4 MG/2 ML Vial IV ×2 (19:32→22:50)
[2023-08-05 19:52] LABS: Color, Urine Yellow (Yellow); Glucose, Dipstick Normal (Normal); Ketone-Dipstick Negative (Negative); Leukocyte Esterase-Dipstick Negative /ul (Negative); Mucous, Urine 0 SEEN /hpf (<or=2+); Nitrite-Dipstick Negative (Negative); Occult Blood-Urine Negative /ul (Negative); Protein-Dipstick Negative (Negative); Red Blood Cells-Urine 0 SEEN /hpf (0-5); Urine Bilirubin Dipstick Negative (Negative); Urine Clarity Clear (Clear); Urine Urobilinogen Normal (Normal); White Blood Cells 0 SEEN /hpf (0-5)
[2023-08-05 20:01] VITALS: BP 121/62; PULSE 85; RESP 16; O2SAT 99
[2023-08-05 20:03] LABS: Squamous Epithelial Cells - UA 5-10 SEEN /hpf (5-10)
[2023-08-05 20:04] LABS: Bacteria RARE /hpf (None Seen)
--- NOTE | 2023-08-05 20:47 | CT_ITS ---
STUDY: CT ABDOMEN AND PELVIS WITH CONTRAST REASON FOR EXAM: Female, 53 years old. Abdominal pain RADIATION DOSAGE (If Supplied By Facility): CTDIvol = ( 13.25 ) mGy, DLP = ( 525.48 ) mGycm TECHNIQUE: Transaxial images were obtained from the dome of the diaphragm to the symphysis pubis with oral contrast. IV 100mL [id number] was administered. Sagittal and coronal images were reconstructed. Individualized dose optimization techniques were used for this CT. COMPARISON: Earlier the same day FINDINGS: The visualized lung bases are unremarkable. The visualized portions of the heart are within normal limits. Normal liver. Normal gallbladder and extrahepatic biliary system. Normal spleen. Normal pancreas. Normal bilateral adrenal glands. There is 0.2 cm stone of the right kidney. There is 0.2 cm stone of the left kidney. Normal visualized stomach. Normal small intestine. Normal colon. The appendix is visualized and appears normal. There is atherosclerotic calcification of the abdominal aorta, without a demonstrated aneurysm. Normal inferior vena cava. Normal retroperitoneum. Normal urinary bladder. There is absence of the uterus consistent with a prior hysterectomy. There is no free fluid in the abdomen or pelvis. Normal abdominal wall. Normal osseous structures. CT/Abdomen/Pelvis WITH Contrast IMPRESSION: No obstruction. Small renal stones. No hydronephrosis. Electronically Signed: Siva Franco MD at 23:11 EDT ,
[2023-08-05 22:00] VITALS: BP 136/80; PULSE 82; RESP 16; TEMP 36.7; O2SAT 98
[2023-08-06] VITALS: BP 130/57; PULSE 66; RESP 16; O2SAT 99
--- NOTE | 2023-08-06 00:09 | US_ITS ---
INDICATION: pelvic pain, rule out torsion EXAMINATION: Ultrasound US Transvaginal Non-OB TECHNIQUE: Transvaginal sonographic images of the pelvis. Grayscale, spectral waveform, and color flow Doppler evaluation of the adnexa. COMPARISON: None. FINDINGS: UTERUS: Status post hysterectomy. RIGHT OVARY: Status post oophorectomy. LEFT OVARY: 2.0 cm simple cyst consistent with a dominant follicle with no follow-up recommended. Normal vascular flow demonstrated with color and pulsed-wave Doppler. FREE FLUID: No significant free fluid. US/Transvaginal Non- IMPRESSION: 1. No evidence of ovarian torsion. 2. 2.0 cm simple left ovarian cyst consistent with a dominant follicle. No follow-up is recommended. 3. Status post hysterectomy and right oophorectomy. Electronically Signed: Hipolito Clark DO at 1:22 EDT ,
[2023-08-06 00:55] LABS: Lactic Acid 0.8 mmol/L (0.4-1.9)
[2023-08-06 02:00] VITALS: BP 124/87; PULSE 62; RESP 16; O2SAT 99
--- NOTE | 2023-08-06 02:14 | ED.RN ---
This RN at bedside to discharge patient. Pt is visually upset but refuses to tell this RN why. Pt states I guess my pain is fake pain This RN attempts emotional support and to explain to patient that its not that we think her pain is fake its just that all of our tests are inconclusive and that she needs to follow up with her PCP for further out patient testing. This patient cuts me off and says yea yea just get me out of here. This RN proceeds with discharge, IV was removed per protocol. Pt declined bandage. Pt then calls out a few minutes later stating im bleeding everywhere. This RN goes to bedside, cleans patients arm and applies a clean dry bandage. Pt ambulates self out of department.
== END 2023-08-06 02:21 | disposition home or self-care (01) ==
PROVIDERS: Emergency Provider Emergency Medicine; PCP Internal Medicine; Visit Provider Emergency Medicine
DX: R10.31 Right lower quadrant pain (principal); Z79.899 Other long term (current) drug therapy; Z90.710 Acquired absence of both cervix and uterus
CPT/HCPCS: 74176; 74177; 76830; 80053; 81001; 83605; 84703; 85025; 93976; 96374; 96375; 96376; 99283; J7030; Q9967; A4216; J2405

== ENCOUNTER → 2023-08-14 | Outpatient (CLI) | payer OTHER, SELFPAY ==
[2023-08-14 10:54] LABS: Erythrocyte Sedimentation Rate 1 mm/hr (0-30)
[2023-08-14 10:56] LABS: Absolute Lymphocyte Count 1.27 X10^3/uL (0.83-4.51); Absolute Neutrophil Count 3.6 X10^3/uL (2.0-7.7); Basophil# 0.05 X10^3/uL; Basophil% 0.9 % (0-1); Eosinophil# 0.32 X10^3/uL; Eosinophils% 5.6 % (0-5); Hematocrit 44.4 % (37-47); Hemoglobin 14.2 g/dL (12.0-15.0); Lymphocyte # 1.27 X10^3/ul (0.83-4.51); Lymphocyte % 22.3 % (19-41); Mean Corpuscular Hgb 28.7 pg (27.0-32.0); Mean Corpuscular Volume 89.7 fL (81-99); Mean Platelet Vol. 9.9 fl (6.2-12.0); Monocyte# 0.45 X10^3/uL; Monocyte% 7.9 % (0-10); NRBC Flagged by Analyzer 0 % (0-5); Neutrophil # 3.58 X10^3/uL (2.7-7.7); Neutrophil % 62.9 % (47-70); Platelet Count 332 K/mm3 (150-450); RBC Distribution Width CV 12.5 % (11.6-14.6); RBC Distribution Width SD 41.1 fl (35.1-43.9); Red Blood Count 4.95 M/mm3 (4.2-5.4); White Blood Count 5.7 K/mm3 (4.4-11.0)
[2023-08-14 11:10] LABS: ALB/GLOB Ratio 1.2 RATIO (0.9-2.4); AST(SGOT) 17 U/L (15-37); Alanine Aminotransfer ALT/SGPT 21 U/L (13-56); Albumin, Serum 3.6 g/dL (3.2-5.0); Alkaline Phosphatase 73 U/L (45-117); Anion Gap 6 (5-15); BUN 13 mg/dL (7-18); CRP < 2.90 mg/L (0.0-3.0); Chloride 107 mmol/L (98-107); Creatinine, Serum 0.93 mg/dL (0.55-1.02); EST Glomerular Filtration Rate 68 mL/min (>60); Est Glom Filt Rate - Afr Amer 82 mL/min (>60); Globulin 3.1 g/dL (2.2-4.2); Glucose 79 mg/dL (74-106); Potassium 4.6 mmol/L (3.5-5.1); Protein, Total 6.7 g/dL (6.4-8.2); Sodium Level 139 mmol/L (136-145)
== END | disposition home or self-care (01) ==
LOC: LABSPEC 10:32 → LAB 13:54
PROVIDERS: PCP Internal Medicine; Referring Provider Internal Medicine; Visit Provider Internal Medicine
DX: R10.31 Right lower quadrant pain (principal)
CPT/HCPCS: 36415; 80053; 83605; 85025; 85652; 86140

== ENCOUNTER → 2023-09-08 | Outpatient (CLI) | payer OTHER, SELFPAY ==
--- NOTE | 2023-09-08 13:59 | BI_ITS ---
MAMMOGRAPHY - BILATERAL SCREENING REASON FOR EXAM: Female, 53 years old. Routine annual screening examination. PERTINENT HISTORY: Aunt with breast cancer. TECHNIQUE: Digital bilateral breast jose elias (3D mammographic acquisition) in the CC and MLO projections. 2-D mediolateral oblique (MLO) and craniocaudad (CC) views of both breasts were obtained. CAD: Full Field Digital Mammography with Computer Added Detection was performed. COMPARISON: Comparison is made with prior study dated August 28, 2020 and March 11, 2019. FINDINGS: Breast Composition: The breasts are extremely dense, which lowers the sensitivity of mammography. There are no dominant masses or suspicious calcifications. Stable small bilateral axillary nodes. No other significant abnormalities are identified. There has been no significant change since the prior study. BI/SCRN MAMM (CAD)W/JOSE ELIAS BILAT IMPRESSION: Stable bilateral screening mammogram. Yearly follow-up mammogram recommended. (A) ASSESSMENT CATEGORY: BIRADS Category 2: Benign. A letter regarding these results will be sent to the patient by the facility within 30 days. Approximately 10% of breast cancers are not detected by mammography. A normal mammogram should not delay biopsy of a clinically suspicious abnormality. [id number] Electronically Signed: Scott Frank MD at 15:43 EDT ,
== END | disposition home or self-care (01) ==
PROVIDERS: PCP Internal Medicine; Referring Provider Internal Medicine; Visit Provider Internal Medicine
DX: Z12.31 Encounter for screening mammogram for malignant neoplasm of breast (principal)
CPT/HCPCS: 77063; 77067

== ENCOUNTER 2023-12-18 09:03 | Day surgery (SDC) | payer OTHER, SELFPAY ==
[2023-12-18] VITALS (7 sets, daily range): BP systolic 93–132; BP diastolic 68–82; PULSE 61–73; RESP 16; TEMP 36.3–37; O2SAT 98–100; BMI 23.6
--- NOTE | 2023-12-18 09:21 | PCM.PRE.AN2 ---
ASA Classification* ASA Classification ASA Classification: 2 Assessment & Plan Anesthesia* Anesthesia Assessment Anesthesia Assessment: Discussed sedation and/or anesthesia options, risks, benefits, and alternatives with patient/parents/legal guardian/POA. Questions invited. The patient/parents/legal guardian/POA seems to understand and agrees to proceed with anesthesia plan. Reviewed the physical assessment, medical history, allergy history and patient home medications list prior to surgery/procedure/anesthetic and documented any changes. Performed airway and anesthesia risk assessments. Anesthesia Type Anesthesia Type: MAC (see written pre anesthesia record for full assessment) Anesthesia Focused Assessment* Airway Assessment Mouth opens: >3 cm Mallampati Score: II Focused Labs Anesthesia Preop lab: CBC WBC 5.7 K/mm3 (4.4-11.0) 08/14/23 07:55 RBC 4.95 M/mm3 (4.2-5.4) 08/14/23 07:55 Hgb 14.2 g/dL (12.0-15.0) 08/14/23 07:55 Hct 44.4 % (37-47) 08/14/23 07:55 Plt Count 332 K/mm3 (150-450) 08/14/23 07:55 CHEMISTRY Potassium 4.6 mmol/L (3.5-5.1) 08/14/23 07:55 Sodium 139 mmol/L (136-145) 08/14/23 07:55 BUN 13 mg/dL (7-18) 08/14/23 07:55 Creatinine 0.93 mg/dL (0.55-1.02) 08/14/23 07:55 Glucose 79 mg/dL (74-106) 08/14/23 07:55 TSH 1.47 uIU/mL (0.358-3.74) 03/06/21 06:38 COAG PT 12.8 SECONDS (11.9-14.4) 07/14/13 15:46 Pre-Assessment Diagnosis/Proposed Procedure Planned Operative Procedure(s): CYSTO, BULKAMID INJ. 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 When Was Last Pacemaker Check QUESTION #4 FULL TEXT: You/Your Family Experience fever (hyperthermia) with Anesthesia Last Oral Intake Last Oral intake: Last Oral Intake NPO since Meds taken in AM with sips of water? 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 Female Yes 12/16/23 15:56 HX of Motion Sickness Yes 12/16/23 15:56 HX of N/V After Surgery No 12/16/23 15:56 Non-Smoker Yes 12/16/23 15:56 Duration of Surgery greater No 12/16/23 15:56 than 60 minutes Number of Risk Factors 3 12/16/23 15:56 PONV Score Moderate Risk 12/16/23 15:56 Height & Weight Height & Weight: Anesthesia: Height & Weight Height 5 ft 6 in 08/14/23 08:03 Respiratory Assessment Respiratory Assessment - electric arc furnace operator: Respiratory Tract Infection Hx - electric arc furnace operator Hx Respiratory Tract Infection No 12/16/23 15:56 STOP Sleep Apnea STOP Sleep Apnea - electric arc furnace operator: STOP Sleep Apnea - electric arc furnace operator Hx Hypertension No 12/16/23 15:56 Hx Sleep Apnea No 12/16/23 15:56 CPAP No 12/16/23 15:56 BIPAP No 12/16/23 15:56 Do you snore loudly (louder No 12/16/23 15:56 than talking or can be heard Do you often feel tired/ No 12/16/23 15:56 fatigued/ sleepy during daytime? Has anyone observed you stop No 12/16/23 15:56 breathing during sleep? STOP Results Negative 12/16/23 15:56 QUESTION #5 FULL TEXT : Do you snore loudly (louder than talking or can be heard through closed doors)? 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 Specify any problems Hx of Preganancy in last 3 No 12/16/23 15:56 Months Nurse Filling Out Transfusion VCHRISTIN 12/16/23 15:56 & Questions: Date: 12/16/23 12/16/23 15:56 Time: 15:57 12/16/23 15:56 Patient unable to answer at this time (ie. 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: /Reproductive Hx- electric arc furnace operator Hx Now No 12/16/23 15:56 Gestational Age (in weeks): EDC: Hx Hx Para Hx Section SAB No 12/16/23 15:56 Active Medications Active Medications: Current Medications Generic Name Dose Route Start Last Admin Trade Name Freq PRN Reason Stop Dose Admin Cefazolin Sodium 2 gm/ Sodium 110 mls @ 150 mls/hr 12/18/23 10:45 Chloride IV 12/18/23 11:28 PREOP ONE Lactated Ringer's 1,000 mls @ 15 mls/hr 12/18/23 09:15 IV .Q48H DG PFSH Medical History Wears glasses Post-menopausal Injury of back Non-smoker Asthma Seasonal allergies Vertigo Home Medications ?Medication ?Instructions ?Recorded ?Last Taken ?Type ascorbic acid (vitamin C) 1,000 mg 1,000 mg PO DAILY 08/05/23 Unknown History tablet,extended release (C Complex) melatonin 10 mg chewable tablet 20 mg PO QHS sleep 08/05/23 Unknown History (MelatoninMax) Allergy/AdvReac Type Severity Reaction Status Date / Time morphine Allergy Swelling Verified 12/16/23 15:49 Family History Other CVA (cerebral vascular accident) Cancer Surgical History History of sinus surgery History of hysterectomy Social History Smoking Status: Never smoker Electronic Cigarette Use: not used second hand exposure: No alcohol intake: never substance use type: does not use Review of Systems (Anesthesia) ROS Narrative System reviewed and no additional complaints, except as documented.
[2023-12-18] MEDS: Lactated Ringers 1,000 ML 15 ML IV (09:37)
[2023-12-18] MEDS: Cefazolin 2 GM in 0.9% Normal Saline (100mL Bag) 100 ML IV (09:54)
--- NOTE | 2023-12-18 09:58 | DCINST_ITS ---
Discharge Instructions Diet Discharge Diet: No restrictions Activity Discharge Activity: Return to Normal Activity (in 2 days) Dressing / Incision Call your doctor if your incision/area has: Continuous Slow Oozing, Sudden Increased Bleeding and Foul Smelling Discharge Call your doctor if you observe: Fever of 101 or Higher, Inability to urinate and Inability to have a bowel movement Follow Up Care Please Follow Up With: Monisha Espinal MD When: The office will call to make arrangements for follow-up. Test Results: Test results from this visit will be discussed in further detail at your follow- up appointment, if applicable. Discharge Plan Admission Attending Provider: Monisha Espinal Primary Care Provider: Margot Rojas Instructions Print Language: Honduran Discharge Orders/Prescriptions Prescriptions: New cephalexin 500 mg capsule 500 mg PO Q12 3 Days Qty: 6 0RF Continued C Complex 1,000 mg tablet extended release 1,000 mg PO DAILY MelatoninMax 10 mg tablet,chewable 20 mg PO QHS Referrals / Follow Up: Margot Rojas DO [Primary Care Provider] - Disposition Disposition (needs filled in before D/C Order can be placed): Home, Self Care
--- NOTE | 2023-12-18 10:15 | OP.PCM_ITS ---
Report of Operation Date of Procedure: 12/18/23 Pre-Operative Diagnosis: Intrinsic sphincter deficiency, stress urinary inconti nence Post-Operative Diagnosis: Same Surgery/Procedure Performed:: Cystoscopy, Bulkamid injection Surgeon: Monisha Espinal Type of Anesthesia: MAC Specimen's removed: None Description of Procedure: The patient is a 53-year-old female who underwent evaluation in the office for stress urinary incontinence and was diagnosed with intrinsic sphincter deficiency. She now presents for intervention with Bulkamid injection and cystoscopy. Informed consent was obtained. The patient was taken to the operating room and placed on the operating room table. Anesthesia monitored the head, neck, airway, IV access and vital signs throughout the case. Once anesthesia was appropriately administered, she was placed into dorsolithotomy position was prepped and draped in usual sterile fashion. Using a red rubber catheter, her bladder was emptied. The Bulkamid cystoscope was then used with the sheath to visualize the urethra and it was advanced to the bladder neck under direct visualization. The needle was advanced to 2 cm and the entire unit was brought back to the 2 cm point in the urethra. At the 7 o'clock position half of a syringe of Bulkamid was injected after the needle was advanced below the mucosa to 1 cm. This process was then repeated at positions 5, 1 and 11. At the conclusion of this, the urethra was completely coapted and the scope was removed. She was awakened and taken to the recovery room in good condition. There were no complications during the procedure. Grafts/Implants Used: Bulkamid Complications None Admit VTE Documentation VTE Present on Admission: Yes VTE Mechan Device Prophylaxis: SCD's VTE Pharm Prophylaxis ordered?: No Reason prophylaxis not ordered:: Treatment Not Indicated
--- NOTE | 2023-12-18 10:27 | PCM.POST.ANE ---
Anesthesia: Postop Eval I Current Vital Signs Temperature: 98 F Pulse Rate: 72 Blood Pressure: 93/71 Respiratory Rate: 16 Pulse Ox: 98 Oxygen Delivery Method: Room Air Assessment Airway patent: Yes Spontaneous unlabored respirations: Yes Mental status: Awake and Calm nausea: No Vomiting: No Anesthesia Complication: No Fluid Hydration Crystalloid volume administer (ml): 300 Total IV fluid infused: 300 Progress Note Anesthesia document: Postop Eval 1 completed: Yes
--- NOTE | 2023-12-18 10:44 | POSTOPAN2_ITS ---
Anesthesia Postop Eval I Sum Postop Eval Completion status Anesthesia document: Postop Eval 1 completed: Yes Anesthesia Postop Eval I Summary Anesthesia Postop Eval I Summary: Anesthesia Postop Eval I: Assessment Summary Airway patent Yes 12/18/23 10:28 CHEMICAL PRODUCTION [email or web address] Spontaneous unlabored Yes 12/18/23 10:28 CHEMICAL PRODUCTION [email or web address].[email or web address] respirations Mental status Awake,Calm 12/18/23 10:28 CHEMICAL PRODUCTION [email or web address] nausea No 12/18/23 10:28 CHEMICAL PRODUCTION [email or web address].[email or web address] Vomiting No 12/18/23 10:28 CHEMICAL PRODUCTION [email or web address].[email or web address] Anesthesia Postop Eval I: Fluid Summary Crystalloid volume administer 300 12/18/23 10:28 CHEMICAL PRODUCTION [email or web address].[email or web address] (ml) Colloids volume administered ( ml) Blood Product volume administered (ml) Total IV fluid infused 300 12/18/23 10:28 CHEMICAL PRODUCTION [email or web address].[email or web address] Anesthesia Postop Eval I: Summary Notes Anesthesia Complication No 12/18/23 10:28 CHEMICAL PRODUCTION [email or web address] Anesthesia Complication Comment: Post-operative progress note Anesthesia: Postop Eval II Evaluation Mental status: Awake and Calm Pain Level: 1 nausea: No Vomiting: No Complications Anesthesia Complication: No
--- NOTE | 2023-12-18 10:44 | PCM.POSTANE2 ---
Anesthesia Postop Eval I Sum Postop Eval Completion status Anesthesia document: Postop Eval 1 completed: Yes Anesthesia Postop Eval I Summary Anesthesia Postop Eval I Summary: Anesthesia Postop Eval I: Assessment Summary Airway patent Yes 12/18/23 10:28 [email or web address] Spontaneous unlabored Yes 12/18/23 10:28 ROVING [email or web address] respirations Mental status Awake,Calm 12/18/23 10:28 ROVING [email or web address] nausea No 12/18/23 10:28 ROVING [email or web address] Vomiting No 12/18/23 10:28 [email or web address] Anesthesia Postop Eval I: Fluid Summary Crystalloid volume administer 300 12/18/23 10:28 [email or web address] (ml) Colloids volume administered ( ml) Blood Product volume administered (ml) Total IV fluid infused 300 12/18/23 10:28 [email or web address] Anesthesia Postop Eval I: Summary Notes Anesthesia Complication No 12/18/23 10:28 [email or web address] Anesthesia Complication Comment: Post-operative progress note Anesthesia: Postop Eval II Evaluation Mental status: Awake and Calm Pain Level: 1 nausea: No Vomiting: No Complications Anesthesia Complication: No
== END 2023-12-18 11:05 | disposition home or self-care (01) ==
LOC: SDC 09:07 → AC 09:08
PROVIDERS: PCP Internal Medicine; Referring Provider Urology; Visit Provider Urology
PROC: 3E0K8GC Introduction of Other Therapeutic Substance into Genitourinary Tract, Via Natural or Artificial Opening Endoscopic (ICD-10-PCS; CPT 52287; principal; 2023-12-18 10:35)
DX: N36.42 Intrinsic sphincter deficiency (ISD) (principal); N39.3 Stress incontinence (female) (male); R35.1 Nocturia
CPT/HCPCS: 51715; J7120; J2405

== ENCOUNTER → 2024-09-17 | Outpatient (CLI) | payer OTHER, SELFPAY ==
--- NOTE | 2024-09-17 15:00 | BI_ITS ---
EXAM: SCRN MAMM (CAD)W/JOSE ELIAS BILAT DATE: 09/17/2024 CLINICAL HISTORY: F, Age 54 y/o , SCREENING TECHNIQUE: SCRN MAMM (CAD)W/JOSE ELIAS BILAT COMPARISON: Prior exam(s) were compared FINDINGS: TISSUE DENSITY: The breasts are heterogeneously dense, which may obscure small masses. Bilateral Breast Mammographic Findings: Right breast: There is an asymmetry in the outer right breast posterior depth. There are 2 asymmetries in the inner right breast at anterior and mid depth. Left breast: No significant masses, calcifications or other abnormalities are identified. BI/SCRN MAMM (CAD)W/JOSE ELIAS BILAT IMPRESSION: Additional views are recommended of the right breast. No mammographic evidence of malignancy in the left breast OVERALL FINAL ASSESSMENT BI-RADS 0: INCOMPLETE - NEED ADDITIONAL IMAGING EVALUATION. RECOMMENDATION: Additional Views obtained/call backs A letter with findings and recommendations will be mailed to the patient. Reading Location: [id number]
== END | disposition home or self-care (01) ==
LOC: OPBI 14:44
PROVIDERS: PCP Internal Medicine; Referring Provider Internal Medicine; Visit Provider Internal Medicine
DX: Z12.31 Encounter for screening mammogram for malignant neoplasm of breast (principal)
CPT/HCPCS: 77063; 77067

== ENCOUNTER → 2024-09-21 | Outpatient (CLI) | payer OTHER, SELFPAY ==
--- NOTE | 2024-09-21 12:55 | BI_ITS ---
EXAM: DIAG MAMM W/CAD, UNILAT; RT BRST UNILAT JOSE ELIAS ADD-ON; BREAST LIMITED UNILATERAL 09/21/2024 CLINICAL HISTORY: F, Age 54 y/o , ABN MAMM TECHNIQUE: DIAG MAMM W/CAD, UNILAT; RT BRST UNILAT JOSE ELIAS ADD-ON; BREAST LIMITED UNILATERAL. COMPARISON: Prior exam(s) dated 09/17/2024, 09/08/2023, 03/30/2020, 03/11/2019. FINDINGS: MAMMOGRAM: TISSUE DENSITY: The breasts are heterogeneously dense, which may obscure small masses. The mammogram demonstrates that the patient has dense breasts. Supplemental screening with whole breast ultrasound or MRI may be considered for further evaluation. Unilateral Right Breast Mammographic Findings: 1. Follow-up examination performed for the asymmetry in the lateral right breast at posterior depth seen on examination of 09/17/2024. On the present examination, the asymmetry in the lateral right breast at posterior depth effaces. 2. Follow-up examination performed for the asymmetries in the medial right breast at anterior and middle depth seen on examination of 09/17/2024. On the present examination, the 2 asymmetries in the medial right breast at anterior to middle depth partially efface. ULTRASOUND: 1. Ultrasound performed of the superior right breast demonstrates no sonographic correlate for the mammographic finding. 2. Ultrasound performed of the medial right breast demonstrates no sonographic correlate for the mammographic findings. BI/DIAG MAMM W/CAD, UNILAT IMPRESSION: The asymmetries in the right breast likely represent benign overlapping fibrogl andular tissues. OVERALL FINAL ASSESSMENT BI-RADS 2: BENIGN RECOMMEND ANNUAL MAMMOGRAPHIC SCREENING. RECOMMENDATION: Routine annual follow-up in 1 Year A letter with findings and recommendations will be mailed to the patient. Reading Location: [id number]
--- NOTE | 2024-09-21 12:55 | BI_ITS ---
EXAM: DIAG MAMM W/CAD, UNILAT; RT BRST UNILAT JOSE ELIAS ADD-ON; BREAST LIMITED UNILATERAL 09/21/2024 CLINICAL HISTORY: F, Age 54 y/o , ABN MAMM TECHNIQUE: DIAG MAMM W/CAD, UNILAT; RT BRST UNILAT JOSE ELIAS ADD-ON; BREAST LIMITED UNILATERAL. COMPARISON: Prior exam(s) dated 09/17/2024, 09/08/2023, 03/30/2020, 03/11/2019. FINDINGS: MAMMOGRAM: TISSUE DENSITY: The breasts are heterogeneously dense, which may obscure small masses. The mammogram demonstrates that the patient has dense breasts. Supplemental screening with whole breast ultrasound or MRI may be considered for further evaluation. Unilateral Right Breast Mammographic Findings: 1. Follow-up examination performed for the asymmetry in the lateral right breast at posterior depth seen on examination of 09/17/2024. On the present examination, the asymmetry in the lateral right breast at posterior depth effaces. 2. Follow-up examination performed for the asymmetries in the medial right breast at anterior and middle depth seen on examination of 09/17/2024. On the present examination, the 2 asymmetries in the medial right breast at anterior to middle depth partially efface. ULTRASOUND: 1. Ultrasound performed of the superior right breast demonstrates no sonographic correlate for the mammographic finding. 2. Ultrasound performed of the medial right breast demonstrates no sonographic correlate for the mammographic findings. BI/Rt Brst Unilat Jose Elias Add-On IMPRESSION: The asymmetries in the right breast likely represent benign overlapping fibrogl andular tissues. OVERALL FINAL ASSESSMENT BI-RADS 2: BENIGN RECOMMEND ANNUAL MAMMOGRAPHIC SCREENING. RECOMMENDATION: Routine annual follow-up in 1 Year A letter with findings and recommendations will be mailed to the patient. Reading Location: [id number]
== END | disposition home or self-care (01) ==
PROVIDERS: PCP Internal Medicine; Referring Provider Internal Medicine; Visit Provider Internal Medicine
DX: R92.8 Other abnormal and inconclusive findings on diagnostic imaging of breast (principal)
CPT/HCPCS: 76642; 77061; 77065; G0279